=== PATIENT | female | born 1990 | race Caucasian/White ===

== ENCOUNTER 2017-09-22 21:37 | Emergency (ER) | payer SELFPAY ==
--- NOTE | 2017-09-22 23:38 | ED PDOC ---
Arrival/HPI - General Chief Complaint: Lower Extremity Problem/Injury Time Seen by Provider: 09/22/17 23:34 Historian: Patient - History of Present Illness Narrative History of Present Illness (Text): 09/22/17 23:38 Poonam Warner is a 26 year old female who presents to the Emergency department complaining of left foot, ankle, and lower leg bruising. Patient states she fell down some stairs 2 weeks prior and injured left leg. Patient reports left foot, ankle, and lower leg bruising with discomfort. Patient able to ambulate without difficulty. Patient denies any decreased range of motion, weakness/numbness/tingling in the extremity, other trauma/injury, or any other complaints. Time/Duration: < month (2 weeks) Symptom Onset: Gradual Symptom Course: Unchanged Activities at Onset: Light Context: Home, Tripped Past Medical History - Provider Review Nursing Documentation Reviewed: Yes - Psychiatric Hx Substance Use: No - Surgical History Other/Comment: breast augmentation Family/Social History - Physician Review Nursing Documentation Reviewed: Yes Family/Social History: Unknown Family HX Smoking Status: Never Smoked Hx Alcohol Use: Yes Frequency of alcohol use: Socially Hx Substance Use: No Allergies/Home Meds Allergies/Adverse Reactions: Allergies No Known Allergies Allergy (Verified 09/22/17 22:05) Home Medications: Home Meds Medication Instructions Recorded Confirmed No Known Home Med 09/22/17 09/22/17 Review of Systems - Physician Review All systems were reviewed & negative as marked: Yes - Review of Systems Constitutional: Normal. absent: Fevers Eyes: Normal ENT: Normal Respiratory: Normal. absent: SOB, Cough Cardiovascular: Normal. absent: Chest Pain Gastrointestinal: Normal. absent: Abdominal Pain, Diarrhea, Nausea, Vomiting Genitourinary Female: Normal. absent: Dysuria, Frequency, Hematuria, Urine Output Changes Musculoskeletal: Other (+left lower leg/ankle/foot bruising). absent: Back Pain , Neck Pain Skin: Normal. absent: Rash Neurological: Normal. absent: Headache, Dizziness Endocrine: Normal Hemo/Lymphatic: Normal Psychiatric: Normal Physical Exam Vital Signs Reviewed: Yes Temperature: Afebrile Blood Pressure: Normal Pulse: Regular Respiratory Rate: Normal Appearance: Positive for: Well-Appearing, Non-Toxic, Comfortable Pain Distress: None Mental Status: Positive for: Alert and Oriented X 3 - Systems Exam Head: Present: Atraumatic, Normocephalic Pupils: Present: PERRL Extroacular Muscles: Present: EOMI Conjunctiva: Present: Normal Mouth: Present: Moist Mucous Membranes Neck: Present: Normal Range of Motion Upper Extremity: Present: Normal Inspection. No: Cyanosis, Edema Lower Extremity: Present: NORMAL PULSES (Full ROM), Normal ROM, Swelling, Neurovascularly Intact, Capillary Refill < 2 s, Other (Ecchymotic bruising to left foot/ankle/lower leg with some mild swelling to the area, no induration). No: Edema, CALF TENDERNESS, Cyanosis, Fidel's Sign, Tenderness, Erythema, Deformity, Temperature Abnormalties Neurological: Present: GCS=15, CN II-XII Intact, Speech Normal Skin: Present: Warm, Dry, Normal Color. No: Rashes Psychiatric: Present: Alert, Oriented x 3, Normal Insight, Normal Concentration Medical Decision Making ED Course and Treatment: 09/22/17 23:38 Impression: 26 year old female complaining of left foot/ankle/lower leg discomfort with bruising s/p injury 2 weeks prior. Plan: -- XR Left Foot -- XR Left Ankle -- XR Left Tibia/Fibula -- XR Left Knee -- Reassess and disposition Progress Notes: 09/23/17 02:48 Reviewed radiology, XR Left Ankle shows no acute processes/fracture XR Left Tibia/Fibula shows no acute processes/fracture XR Left Knee shows no acute processes/fracture XR Left Foot shows: Bones/joints: Unremarkable. No acute fracture. No dislocation. Soft tissues: Unremarkable. No radiopaque foreign body. IMPRESSION: Normal left foot x-rays. 09/23/17 03:16 On re-evaluation, patient feels better and is in no acute distress. I have discussed the results and plan with the patient, who expresses understanding. Patient in agreement with plan to be discharged home. Patient is stable for discharge. Patient was instructed to follow up with physician/orthopedist/ clinic or return if symptoms worsen or new concerning symptoms arise. - RAD Interpretation Radiology Orders: 09/23/17 00:29 ANKLE LEFT 3 VIEWS ROUTINE [RAD] Stat TIBIA FIBULA LT FALL PROTOCOL [RAD] Stat 09/23/17 00:30 FOOT LEFT 3 VIEWS ROUTINE [RAD] Stat 09/23/17 00:31 KNEE LEFT 2 VIEWS (AP & LAT) [RAD] Stat Ad Trafficker: ED Physician, Radiologist - Scribe Statement The provider has reviewed the documentation as recorded by the Scribe Kathy Quintana All medical record entries made by the Maximilianoibtolu were at my direction and personally dictated by me. I have reviewed the chart and agree that the record accurately reflects my personal performance of the history, physical exam, medical decision making, and the department course for this patient. I have also personally directed, reviewed, and agree with the discharge instructions and disposition. Disposition/Present on Arrival - Present on Arrival Any Indicators Present on Arrival: No History of DVT/PE: No History of Uncontrolled Diabetes: No Urinary Catheter: No History of Decub. Ulcer: No History Surgical Site Infection Following: None - Disposition Have Diagnosis and Disposition been Completed?: Yes Diagnosis: Contusion of leg, Foot sprain, Ankle sprain Disposition: HOME/ ROUTINE Disposition Time: 03:11 Patient Plan: Discharge Patient Problems: Current Active Problems Problem Status Onset Ankle sprain Acute Contusion of leg Acute Foot sprain Acute Condition: GOOD Discharge Instructions (ExitCare): Ankle Sprain (ED), Contusion in Adults (ED) , Foot Contusion (ED), Foot Sprain (ED) Additional Instructions: Use crutches/no weight bearing on the affected area/keep leg elevated when sitting/follow up with the orthopedist this week Referrals: Pj Reeves MD [Staff Provider] - Follow up with primary Forms: [employer] (Bengali)
--- NOTE | 2017-09-23 03:00 | RAD ---
EXAM: XR Left Foot Complete, 3 or More Views CLINICAL HISTORY: 26 years old, female; Injury or trauma; Fall; Initial encounter; Sprain or strain; Foot; Left TECHNIQUE: Frontal, lateral and oblique views of the left foot. COMPARISON: No relevant prior studies available. FINDINGS: Bones/joints: Unremarkable. No acute fracture. No dislocation. Soft tissues: Unremarkable. No radiopaque foreign body. IMPRESSION: Normal left foot x-rays.
[2017-09-23 04:10] VITALS: BP 120/72; PULSE 78; RESP 18; TEMP 98.4; O2SAT 100
--- NOTE | 2017-09-23 09:25 | RAD ---
PROCEDURE: Left Knee Radiographs. HISTORY: Pain. COMPARISON: None. FINDINGS: BONES: Bone alignment and mineralization are normal. There no acute displaced fracture or bone destruction. JOINTS: Normal. No osteoarthritis. JOINT EFFUSION: None. OTHER FINDINGS: None. IMPRESSION: No acute fracture or dislocation.
--- NOTE | 2017-09-23 09:26 | RAD ---
PROCEDURE: Radiographs of the left tibia and fibula. HISTORY: Injury COMPARISON: None available. TECHNIQUE: Frontal and lateral views obtained. FINDINGS: BONES: Bone alignment and mineralization are normal. There is no acute displaced fracture or bone destruction. For JOINT SPACES: Unremarkable. OTHER FINDINGS: None. IMPRESSION: No acute fracture or dislocation.
--- NOTE | 2017-09-23 09:29 | RAD ---
PROCEDURE: Left Ankle Radiographs. HISTORY: Injury COMPARISON: None FINDINGS: BONES: Bone alignment and mineralization are normal. There is no acute displaced fracture or bone destruction. JOINTS: There is no joint effusion. Ankle mortise maintained. Talar dome intact SOFT TISSUES: Normal. OTHER FINDINGS: None. IMPRESSION: No acute fracture or dislocation.
== END 2017-09-23 03:55 | disposition home or self-care (01) ==
LOC: ED 21:37
DX: S93.602A Unspecified sprain of left foot, initial encounter (principal); S93.402A Sprain of unspecified ligament of left ankle, initial encounter; S80.12XA Contusion of left lower leg, initial encounter; W10.9XXA Fall (on) (from) unspecified stairs and steps, initial encounter